=== PATIENT | female | born 1995 | race Caucasian/White ===

== ENCOUNTER 2017-07-17 01:38 | Emergency (ER) | payer OTHER ==
[2017-07-17 01:43] VITALS: BP 103/70; RESP 16; TEMP 97.9; O2SAT 97
--- NOTE | 2017-07-17 01:48 | EDPHY ---
H & P Stated Complaint: lac on knee HPI/ROS: HPI CHIEF COMPLAINT: Knee laceration, alcohol intoxication HISTORY OF PRESENT ILLNESS: Patient very pleasant 22-year-old female, she presents emergency room with a right knee laceration. Patient states that she got intoxicated she had 8 shots of liquor this evening. She was unable to ambulate fell on her right knee sustaining a 4 cm horizontally oriented right knee laceration. She denies any other area injury. She arrives by private vehicle with her friends. She is intoxicated with alcohol. She denies any other areas of pain or injury. Past Medical History: No significant medical history except pilonidal cyst Past Surgical History: Pilonidal cyst surgery recently on antibiotics. Social History: Alcohol this evening, 22st birthday, denies illicit drugs or tobacco. Family History: Noncontributory ROS REVIEW OF SYSTEMS: A comprehensive 10 point review of systems is otherwise negative aside from elements mentioned in the history of present illness. Exam Constitutional smells of alcohol, toxic it with alcohol triage nursing summary reviewed, vital signs reviewed, awake/alert. Eyes normal conjunctivae and sclera, EOMI, PERRLA. HENT normal inspection, atraumatic, moist mucus membranes, no epistaxis, neck supple/ no meningismus, no raccoon eyes. Respiratory clear to auscultation bilaterally, normal breath sounds, no respiratory distress, no wheezing. Cardiovascular rate normal, regular rhythm, no murmur, no edema, distal pulses normal. Gastrointestinal soft, non-tender, no rebound, no guarding, normal bowel sounds, no distension, no pulsatile mass. Genitourinary no CVA tenderness. Musculoskeletal no midline vertebral tenderness, full range of motion, no calf swelling, no tenderness of extremities, no meningismus, good pulses, neurovascularly intact. Skin Right Knee: Horizontally oriented 4 cm laceration. Otherwise unremarkable exam. Full range of motion of the right knee. No tendon involvement. No arterial vomit. No gross contamination or foreign debris visualized. No bony involvement. Neurologic intoxicated with alcohol, smells of alcohol awake, alert and oriented x 3, AAOx3, moves all 4 extremities equally, motor intact, sensory intact, CN II-XII intact, normal cerebellar, normal vision, normal speech. Psychiatric normal mood/affect. Heme/Lymph/Immune no lymphadenopathy. Differential Diagnosis: Includes but is not limited to in acute alcohol intoxication, fall, laceration, knee contusion, soft tissue injury Medical Decision Making: Plan for this patient laceration will need to be repaired. Additionally her wound will need to be copiously irrigating and cleaned. Re-evaluation: Laceration Repair Procedure: Verbal Consent was obtained, Under sterile conditions, The patient had lidocaine with epinephrine used approximately 7ccs to local anesthetize the Right knee 4CM horiztonal Laceration. The wound was copiously irrigated with sterile fluid, the wound was explored for foreign bodies there were none visualized, the wound was explored with a sterile glove to the base. There are no deep structures involved, including no arterial injury. FOUR 4.O PROLENE interrupted Sutures were placed in this patient's laceration. She had good close approximation of the wound edges. She Tolerated this well. Patient's wound was copiously irrigated and explored. There were no debris or foreign bodies visualized. The wound was copiously irrigated. And closed with close box make sure the wound edges. She understands to have the wound sutures removed in 12-14 days. Additionally understands keep the wound clean, dry and protected. Return if any further questions or concerns or signs of infection this includes redness, drainage, pus Source: Patient - Personal History LMP (Females 10-55): Current Tetanus/Diphtheria Vaccine: Yes Current Tetanus Diphtheria and Acellular Pertussis (TDAP): Yes - Medical/Surgical History Hx Asthma: No Hx Chronic Respiratory Disease: No Hx Diabetes: No Hx Cardiac Disease: No Hx Renal Disease: No Hx Cirrhosis: No Hx Alcoholism: No Hx HIV/AIDS: No Hx Splenectomy or Spleen Trauma: No Other PMH: cyst - Social History Smoking Status: Never smoked Constitutional: Initial Vital Signs Temperature (C) 36.6 C 07/17/17 01:39 Heart Rate 94 07/17/17 01:39 Respiratory Rate 16 07/17/17 01:39 Blood Pressure 103/70 07/17/17 01:39 O2 Sat (%) 97 07/17/17 01:39 O2 Delivery Mode Room Air Allergies/Adverse Reactions: No Known Allergies Allergy (Unverified 07/17/17 01:43) Departure - Departure Disposition: Home, Routine, Self-Care Clinical Impression: Laceration Condition: Good Instructions: Laceration (ED), Care For Your Stitches (ED) Additional Instructions: 1. Sutures need to be removed in 12-14 days. 2. Return emergency room if you have any worsening symptoms questions or concerns. 3. Keep her wound clean, dry and intact and protected. Referrals: NEHAL MARTÍNEZ [Other] - As per Instructions
[2017-07-17 02:25] VITALS: PULSE 88
== END 2017-07-17 02:23 | disposition home or self-care (01) ==
PROC: 0HQKXZZ Repair Right Lower Leg Skin, External Approach (ICD-10-PCS; principal; 2017-07-17)
DX: O9A.219 Injury, poisoning and certain other consequences of external causes complicating pregnancy, unspecified trimester (principal); S81.011A Laceration without foreign body, right knee, initial encounter; W19.XXXA Unspecified fall, initial encounter